=== PATIENT | male | born 1970 | race Caucasian/White ===

== ENCOUNTER 2016-09-02 07:36 | Emergency (ER) | payer OTHER, BC ==
[2016-09-02] MEDS ORDERED: OXYCODONE-ACETAMINOPHEN 5-325 MG TABLET PO ONE (08:47)
[2016-09-02 09:09] LABS: HEMATOCRIT 44.1 % (37.9-51.0); HEMOGLOBIN 15.3 g/dL (13.5-17.0); HGB HCT DIFFERENCE 1.8; MEAN CORPUSCULAR HEMOGLOBIN 32.6 pg (27.0-33.4); MEAN CORPUSCULAR HGB CONC 34.7 g/dL (32.0-36.0); MEAN CORPUSCULAR VOLUME 94 fl (80-97); RED BLOOD COUNT 4.68 10^6/uL (4.35-5.55); RED CELL DISTRIBUTION WIDTH 13.1 % (11.5-14.0); WHITE BLOOD COUNT 7.3 10^3/uL (4.0-10.5)
[2016-09-02 09:28] LABS: BLOOD UREA NITROGEN 15 mg/dL (7-20); CALCIUM 9.4 mg/dL (8.4-10.2); CREATININE RESULT 1.11 mg/dL (0.52-1.25); GLUCOSE 113 mg/dL (75-110)
[2016-09-02 09:29] LABS: ALANINE AMINOTRANSFERASE 43 U/L (21-72); ALKALINE PHOSPHATASE 66 U/L (38-126); ANION GAP 11 (5-19); ASPARTATE AMINO TRANSFERASE 37 U/L (17-59); BILIRUBIN,DIRECT 0.3 mg/dL (0.0-0.4); BILIRUBIN,TOTAL 0.4 mg/dL (0.2-1.3); CARBON DIOXIDE 25 mmol/L (22-30); CHLORIDE 104 mmol/L (98-107); POTASSIUM 4.8 mmol/L (3.6-5.0); SODIUM 139.9 mmol/L (137-145)
[2016-09-02 09:30] LABS: BASOPHILS % (MANUAL) 0 % (0-2); EOSINOPHILS % (MANUAL) 7 % (0-6); LYMPHOCYTES % (MANUAL) 29 % (13-45); POLYCHROMASIA SLIGHT; TOTAL CELLS COUNTED 100; TOXIC GRANULATION SLIGHT
--- NOTE | 2016-09-02 09:56 | ER Document Report ---
ED General - General Chief Complaint: Wound Infection Stated Complaint: LEFT LEG INJURY Mode of Arrival: Ambulatory Information source: Patient Notes: Patient presents emergency department with complaints of left lower leg infection. Patient reports last Monday he was hit in the left siddiqui with a rock while mowing the lawn. On Monday the leg started swelling. On Monday he went to see his primary care, he was placed on . On Monday the swelling increased to the area and his foot, an I&D was done at the primary care 's office (a culture was done). Tody the swelling is worse. He was evaluated by his primary care this am and sent here for IV antibiotics. He denies other symptoms such as fever vomiting diarrhea. Reports history of staph and cellulitis. Reports the area is very tender. TRAVEL OUTSIDE OF THE [place] IN LAST 30 DAYS: No - Related Data Allergies/Adverse Reactions: No Known Allergies Allergy (Unverified 12/14/13 19:24) Past Medical History - General Information source: Patient - Social History Smoking Status: Former Smoker Cigarette use (# per day): No Frequency of alcohol use: None Drug Abuse: None Lives with: Family Family History: Reviewed & Not Pertinent Patient has suicidal ideation: No Patient has homicidal ideation: No Renal/ Medical History: Denies: Hx Peritoneal Dialysis Skin Medical History: Reports Hx Cellulitis, Reports Other - staph Past Surgical History: Reports: Hx Orthopedic Surgery - right knee; DANIELA 5th finger (rods) - Immunizations Hx Diphtheria, Pertussis, Tetanus Vaccination: Yes Physical Exam - Vital signs Vitals: Temp Pulse Resp BP Pulse Ox 97.7 F 83 18 140/102 H 98 09/02/16 07:42 09/02/16 07:42 09/02/16 07:42 09/02/16 07:42 09/02/16 07:42 - Notes Notes: PHYSICAL EXAMINATION: GENERAL: Well-appearing and in no acute distress winces when leg is touched HEAD: Atraumatic, normocephalic. EYES: Pupils equal round , extraocular movements intact, sclera anicteric, conjunctiva are normal. ENT: nares patent, . Moist mucous membranes. NECK: Normal range of motion, supple without lymphadenopathy LUNGS: CTAB and equal. No wheezes rales or rhonchi. HEART: Regular rate and rhythm without murmurs ABDOMEN: Soft, no tenderness. No guarding, no rebound EXTREMITIES: Normal range of motion, no pitting edema. No cyanosis. NEUROLOGICAL: Cranial nerves grossly intact. Normal sensory/motor exams. PSYCH: Normal mood, normal affect. SKIN: Warm, Dry, normal turgor, no rashes abscess to left lower leg with drainage noted surrounded by erythema, no induration, left foot very slightly swollen, good pedal pulse, brisk cap refill Course - Re-evaluation Re-evalutation: 09/02/16 10:[address] thao regarding pt c/o, labs, plan to call surgeon. he agreed with plan constuled dr moya, surgeon, who will be over to see patient. 09/02/16 11:34 Dr. Moya in the emergency department. Reports the abscess needs to be drained a little more, which I will do. IV clindamycin ordered. 09/02/16 12:55 I&D completed. Patient tolerated procedure but was very anxious during the procedure. Very little drainage obtained. Patient instructed on the purpose of opening up AN abscess, importance for drainage, keep the abscess clean and allow for drainage, follow-up with Dr. Huerta on Monday. He verbalized understanding to all instructions - Vital Signs Vital signs: Temp Pulse Resp BP Pulse Ox 97.9 F 66 17 133/88 H 94 09/02/16 12:09 09/02/16 12:09 09/02/16 12:09 09/02/16 12:09 09/02/16 12:09 - Laboratory Result Diagrams: 09/02/16 08:40 09/02/16 08:40 Laboratory results interpreted by me: 09/02/16 09/02/16 08:40 08:40 Eosinophils % (Manual) 7 H Metamyelocytes % 1 H Glucose 113 H - Diagnostic Test Radiology reviewed: Image reviewed, Reports reviewed - IMPRESSION: No significant findings. No plain film evidence for bony involvement by osteomyelitis. Other findings as noted above - Consults dr moya Reason for consultation: 09/02/16 10:47 abscess Consulted provider: will come to ER Procedures - Incision and Drainage Left Leg Type: Simple Anesthetic type: 1% Lidocaine mL's of anesthetic: 4 Blade size: 11 I&D procedure: Shurclens applied Incision Method: Incision made by scalpel Amount/type of drainage: small amount Adult Front & Back picture: 1 - T shaped incison made, very little drainage obtained, culture sent Discharge - Discharge Clinical Impression: Abscess, incision and drainage Condition: Stable Disposition: HOME, SELF-CARE Instructions: Abscess ([facility]), Post Incision and Drainage, Oral Narcotic Medication ([facility]) Additional Instructions: *You have been treated for an abscess with incision and drainage, elevated blood pressure reading *Take your antibiotics and pain medication as prescribed *Monitor the site for signs of increasing infection such as increasing pain, redness, swelling, warmth *Wash the site twice daily as discussed *Follow up with your primary care provider Monday for recheck *Return to ED for signs of increasing infection, worsening condition, changes, needs Monitor your blood pressure. Your blood pressure was elevated today. This may be because you were anxious, in pain or because you need medication. It is important to follow up with your primary care provider for full evaluation. Prescriptions: Oxycodone HCl/Acetaminophen [Percocet 5-325 mg Tablet] 1 - 2 tab PO ASDIR PRN # 20 tablet PRN Reason: Forms: Elevated Blood Pressure Referrals: JACKELYN SUN MD [Primary Care Provider] - Follow up as needed
[2016-09-02] MEDS ORDERED: CLINDAMYCIN 600 MG/D5W RTU 50 ML IV ONE (11:33)
[2016-09-02] MEDS ORDERED: LIDOCAINE 1% INJ-PF (10 MG/ML) 30 ML SDV INJ ONE (11:36)
[2016-09-02 12:11] VITALS: BP 133/88
== END 2016-09-02 13:10 | disposition home or self-care (01) ==
LOC: ER 07:36
PROC: 0H9LXZZ Drainage of Left Lower Leg Skin, External Approach (ICD-10-PCS; principal; 2016-09-02)
DX: L02.416 Cutaneous abscess of left lower limb (principal); Z87.891 Personal history of nicotine dependence
CPT/HCPCS: 36415; 80053; 85025; 87040; 87070; 87075; 87077; 87186; 87205; 96365; 99283